=== PATIENT | male | born 1950 | race Caucasian/White ===

== ENCOUNTER 2024-12-17 15:55 | Outpatient (CLI) | payer MEDICARE, MEDICAID ==
--- NOTE | 2024-12-17 21:13 | RADIOLOGY REPORT ---
EXAM: MR MRI LOWER EXTREMITY RIGHT HISTORY: PAIN IN RIGHT KNEE COMPARISON: None TECHNIQUE: Multiplanar, multisequence imaging of the right knee was performed without contrast FINDINGS: MEDIAL COMPARTMENT: Intact medial meniscus. No focal chondrosis or subchondral edema. LATERAL COMPARTMENT: Intact lateral meniscus. No focal chondrosis or subchondral edema. PATELLOFEMORAL COMPARTMENT: No focal chondrosis or subchondral edema. CRUCIATE LIGAMENTS: Intact anterior and posterior cruciate ligaments. MEDIAL SUPPORTING STRUCTURES: Intact medial collateral ligament. LATERAL SUPPORTING STRUCTURES: Intact iliotibial band, lateral capsular ligament, fibular collateral ligament, popliteus, and biceps femoris tendons EXTENSOR MECHANISM: Intact JOINT SPACE/FLUID: No joint effusion. complex Pak's cyst with internal septations and minimal infer ior dehiscence BONES: No acute fracture, osseous contusion, or aggressive focal osseous lesion MUSCLES: Feathery muscle edema posterior aspect of the proximal calf. Edema along the short head of t he biceps femoris. NEUROVASCULAR: Unremarkable OTHER: None IMPRESSION: 1. Nonspecific muscle edema of the posterior calf and distal biceps femoris. Correlate for myositis v ersus muscle strains. 2. No meniscal or cruciate ligamentous injury. No knee joint effusion.
--- NOTE | 2024-12-19 08:00 | RADIOLOGY REPORT ---
EXAM: MR MRI LOWER EXTREMITY LEFT HISTORY: PAIN IN LEFT KNEE COMPARISON: MR MRI LOWER EXTREMITY RIGHT on DOS: 12/17/24 TECHNIQUE: Multiplanar, multisequence imaging of the left knee was performed without contrast FINDINGS: MEDIAL COMPARTMENT: Intact medial meniscus. No focal chondrosis or subchondral edema. LATERAL COMPARTMENT: Intact lateral meniscus. No focal chondrosis or subchondral edema. PATELLOFEMORAL COMPARTMENT: No focal chondrosis or subchondral edema. CRUCIATE LIGAMENTS: Intact anterior and posterior cruciate ligaments. MEDIAL SUPPORTING STRUCTURES: Intact medial collateral ligament. LATERAL SUPPORTING STRUCTURES: Intact iliotibial band, lateral capsular ligament, fibular collateral ligament, popliteus, and biceps femoris tendons EXTENSOR MECHANISM: Intact JOINT SPACE/FLUID: No joint effusion. Trace Pak's cyst. BONES: No acute fracture, osseous contusion, or aggressive focal osseous lesion MUSCLES: Normal in signal intensity and morphology . Minimal edematous appearance along the central a spect of the medial head to lateral head of the gastrocnemius of the posterior proximal calf. NEUROVASCULAR: Unremarkable OTHER: None IMPRESSION: 1. No MR evidence of significant internal derangement. 2. Minimal edematous appearance along the central aspect of the medial head to lateral head of the ga strocnemius of the posterior proximal calf.
== END 2024-12-17 23:59 | disposition home or self-care (01) ==
LOC: MRI02 15:55
PROVIDERS: ATTEND Family Medicine Sports Medicine
DX: S83.212A Bucket-handle tear of medial meniscus, current injury, left knee, initial encounter (principal); M25.561 Pain in right knee; M25.562 Pain in left knee; M71.21 Synovial cyst of popliteal space [Baker], right knee; X58.XXXA Exposure to other specified factors, initial encounter; Y93.9 Activity, unspecified; Y92.89 Other specified places as the place of occurrence of the external cause; Y99.8 Other external cause status
CPT/HCPCS: 73721